=== PATIENT | female | born 1970 | race Hispanic/Latino ===

== ENCOUNTER 2017-12-15 18:27 | Emergency (ER) | payer OTHER, SELFPAY ==
[2017-12-15] MEDS ORDERED: ONDANSETRON 4 MG (ODT) TAB ONE (19:43)
[2017-12-15] MEDS ORDERED: MECLIZINE HCL 12.5 MG TAB ONE (19:43)
[2017-12-15 20:01] LABS: Urine Blood TRACE (NEG); Urine Glucose NEGATIVE (NEG); Urine Protein NEGATIVE (NEG); Urine Specific Gravity 1.025 (1.005-1.030)
[2017-12-15 20:11] LABS: Absolute Lymphocytes (CBC) 3.2 K/uL (0.7-4.9); Absolute Monocytes 0.9 K/uL (0.1-1.3); Absolute Neutrophil 3.8 K/uL (1.8-8.0); Eosinophils % 2.5 % (0-4.4); Hematocrit 37.9 % (36.0-45.0); Lymphocytes % 39.5 % (15.3-44.8); MCH 29.9 pg (27.0-35.0); MCV 86.7 fL (80-100); MPV 10.3 fL (7.6-11.3); Monocytes % 10.8 % (3.3-12.3); RBC Red Blood Cell Count 4.37 M/uL (3.86-4.86)
[2017-12-15 20:19] LABS: Potassium 3.9 mEq/L (3.6-5.0)
[2017-12-15 20:23] LABS: Albumin 3.3 g/dL (3.2-5.5); Bilirubin Total 0.3 mg/dL (0.3-1.2); Protein, Total 6.6 g/dL (6.0-8.3)
--- NOTE | 2017-12-15 20:32 | RAD REPORT ---
EXAM DESCRIPTION: CT - Head Brain Wo Cont - 12/15/2017 8:23 pm CLINICAL HISTORY: Headache COMPARISON: None. TECHNIQUE: All CT scans are performed using dose optimization technique as appropriate and may inclu de automated exposure control or mA/KV adjustment according to patient size. FINDINGS: No intracranial hemorrhage, hydrocephalus or extra-axial fluid collection.No areas of brai n edema or evidence of midline shift. The paranasal sinuses and mastoids are clear. The calvarium is intact. IMPRESSION: No acute intracranial abnormality.
--- NOTE | 2017-12-15 21:17 | EDPHYS ---
Physician Documentation [facility] Name: Priya Hood Age: 47 yrs Sex: Female : 1970 Arrival Date: 12/15/2017 Time: 18:28 Bed 28 Private MD: ED Physician Devin Schuster HPI: 12/16 02:29 This 47 yrs old Female presents to ER via Ambulatory with complaints of tw4 Dizziness, Headache. 02:29 The patient presents with dizziness. Onset: The symptoms/episode began/occurred today. tw4 Context: occurred at home. Modifying factors: The symptoms are alleviated by nothing, the symptoms are aggravated by nothing. Associated signs and symptoms: The patient has no apparent associated signs or symptoms. Severity of symptoms: At their worst the symptoms were moderate in the emergency department the symptoms are unchanged. Patient's baseline: Neuro: alert and fully oriented, Motor: no deficits, Ambulation: walks without assistance. The patient has not experienced similar symptoms in the past. 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 - Social history:: Smoking status: Patient/guardian denies using tobacco. ROS: 12/16 02:29 Constitutional: Negative for fever, chills, and weight loss, Cardiovascular: Negative tw4 for chest pain, palpitations, and edema, Respiratory: Negative for shortness of breath, cough, wheezing, and pleuritic chest pain, Abdomen/GI: Negative for abdominal pain, nausea, vomiting, diarrhea, and constipation, MS/Extremity: Negative for injury and deformity, Skin: Negative for injury, rash, and discoloration. Neuro: Positive for dizziness, Negative for altered mental status, gait disturbance, headache, hearing loss, loss of consciousness, numbness, seizure activity. Exam: 02:29 Constitutional: This is a well developed, well nourished patient who is awake, alert, tw4 and in no acute distress. Head/Face: Normocephalic, atraumatic. Chest/axilla: Normal chest wall appearance and motion. Nontender with no deformity. No lesions are appreciated. Cardiovascular: Regular rate and rhythm with a normal S1 and S2. No gallops, murmurs, or rubs. Normal PMI, no JVD. No pulse deficits. Respiratory: Lungs have equal breath sounds bilaterally, clear to auscultation and percussion. No rales, rhonchi or wheezes noted. No increased work of breathing, no retractions or nasal flaring. Abdomen/GI: Soft, non-tender, with normal bowel sounds. No distension or tympany. No guarding or rebound. No evidence of tenderness throughout. MS/ Extremity: Pulses equal, no cyanosis. Neurovascular intact. Full, normal range of motion. 02:29 Neuro: Orientation: is normal, Mentation: is normal, Memory: is normal, Cranial nerves: grossly normal, Motor: is normal, Sensation: is normal. Vital Signs: 12/15 18:32 BP 138 / 76; Pulse 74; Resp 19; Temp 98.1(TE); Pulse Ox 100% on R/A; Weight 74.84 kg; la1 Height 5 ft. 1 in. (154.94 cm); 19:17 BP 131 / 80; Pulse 62; Resp 18; Pulse Ox 100% on R/A; Pain 0/10; ak1 18:32 Body Mass Index 31.18 (74.84 kg, 154.94 cm) la1 MDM: 19:11 Patient medically screened. 12/16 02:29 Differential diagnosis: cardiac arrhythmia, generalized weakness, hypovolemia, tw4 idiopathic dizziness, near-syncope, vertigo. Data reviewed: vital signs, nurses notes. Data interpreted: hhas: rhythm is normal sinus rhythm, Pulse oximetry: Interpretation: normal. Counseling: I had a detailed discussion with the patient and/or guardian regarding: the historical points, exam findings, and any diagnostic results supporting the discharge/admit diagnosis, lab results, radiology results. Special discussion: I discussed with the patient/guardian in detail that at this point there is no indication for admission to the hospital. It is understood, however, that if the symptoms persist or worsen the patient needs to return immediately for re-evaluation. 12/15 19:19 Order name: CBC with Diff; Complete Time: 21:14 tw4 12/15 19:19 Order name: CMP; Complete Time: 21:14 tw4 12/15 19:19 Order name: CT Head Brain wo Cont; Complete Time: 21:14 tw4 12/15 19:54 Order name: Urine Dipstick--Ancillary (enter results); Complete Time: 21:14 em1 12/15 19:54 Order name: Urine --Ancillary (enter results); Complete Time: 21:14 em1 Administered Medications: 12/15 19:45 Drug: Meclizine 25 mg Route: PO; ak1 20:54 Follow up: Response: No adverse reaction ak1 19:46 Drug: Zofran 4 mg Route: PO; ak1 20:54 Follow up: Response: No adverse reaction ak1 20:54 Drug: NS 0.9% 1000 ml Route: IV; Rate: 1 bolus; Site: right antecubital; ak1 21:26 Follow up: IV Status: Completed infusion ak1 Disposition: 12/15/17 21:17 Discharged to Home. Impression: VERTIGO. - Condition is Stable. - Discharge Instructions: Benign Positional Vertigo. - Prescriptions for Antivert 25 mg Oral Tablet - take 1 tablet by ORAL route every 8 hours As needed; 20 tablet. Zofran 4 mg Oral Tablet - take 1 tablet by ORAL route every 12 hours As needed; 20 tablet. - Medication Reconciliation Form, Thank You Letter, Antibiotic Education, Prescription Opioid Use form. - Follow up: Private Physician; When: As needed; Reason: Recheck today's complaints, Re-evaluation by your physician. - Problem is new. - Symptoms have improved. Signatures: Dispatcher [employer] EDMS Earnest Valle, RN RN la1 Kesha Nelson RN RN ak1 Devin Schuster MD MD tw4
--- NOTE | 2017-12-15 21:17 | ER ---
Nurse's Notes [facility] Name: Priya Hood Age: 47 yrs Sex: Female : 1970 Arrival Date: 12/15/2017 Time: 18:28 Bed 28 Private MD: Diagnosis: VERTIGO Presentation: 12/15 18:31 Presenting complaint: Patient states: I have been having episodes where it feels like la1 the room is spinning around me since with headache. Transition of care: patient was not received from another setting of care. Onset of symptoms was December 15, 2017. Initial Sepsis Screen: Does the patient meet any 2 criteria? No. Patient's initial sepsis screen is negative. Does the patient have a suspected source of infection? No. Patient's initial sepsis screen is negative. Care prior to arrival: None. 18:31 Method Of Arrival: Ambulatory la1 18:31 Acuity: [place] 3 la1 Triage Assessment: 19:12 General: Appears in no apparent distress. Behavior is calm, cooperative. Pain: ak1 Complains of pain in head. 19:16 Pain: Pain currently is 0 out of 10 on a pain scale. Pain began 2-3 days ago. Also ak1 complains of nausea. 19:17 Headache History: Other pt denies headache at this time. 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 - Social history:: Smoking status: Patient/guardian denies using tobacco. Screenin:15 Abuse screen: Denies threats or abuse. Denies injuries from another. Nutritional ak1 screening: No deficits noted. Tuberculosis screening: No symptoms or risk factors identified. Fall Risk None identified. Assessment: 19:15 General: Appears in no apparent distress. Pain: Denies pain. Neuro: Level of ak1 Consciousness is awake, alert, obeys commands, Oriented to person, place, time, situation, Coffin Maker are equal bilaterally Moves all extremities. Gait is steady, Speech is normal, Facial symmetry appears normal. Cardiovascular: No deficits noted. Respiratory: No deficits noted. GI: Reports nausea. : No signs and/or symptoms were reported regarding the genitourinary system. EENT: No signs and/or symptoms were reported regarding the EENT system. Derm: No signs and/or symptoms reported regarding the dermatologic system. Musculoskeletal: No signs and/or symptoms reported regarding the musculoskeletal system. Vital Signs: 18:32 BP 138 / 76; Pulse 74; Resp 19; Temp 98.1(TE); Pulse Ox 100% on R/A; Weight 74.84 kg; la1 Height 5 ft. 1 in. (154.94 cm); 19:17 BP 131 / 80; Pulse 62; Resp 18; Pulse Ox 100% on R/A; Pain 0/10; ak1 18:32 Body Mass Index 31.18 (74.84 kg, 154.94 cm) la1 ED Course: 18:28 Patient arrived in ED. as 18:32 Triage completed. la1 18:32 Arm band placed on left wrist. la1 19:11 Devin Schuster MD is Attending Physician. tw4 19:11 Kesha Nelson, RN is Primary Nurse. ak1 19:16 Patient has correct armband on for positive identification. Bed in low position. Call ak1 light in reach. Side rails up X 1. Adult w/ patient. Pulse ox on. NIBP on. 19:31 Radiology exam delayed due to test not completed at this time. cw1 20:00 Initial lab(s) drawn, by me, sent to lab. by venipuncture 23G to left ac. dh3 20:06 Inserted saline lock: 20 gauge in left antecubital area, using aseptic technique. dh3 20:23 CT Head Brain wo Cont In Process Unspecified. EDMS 20:23 CT completed. Patient tolerated procedure well. Patient moved back from CT. bq 21:25 No provider procedures requiring assistance completed. ak1 21:34 IV discontinued, intact, bleeding controlled, No redness/swelling at site. Pressure ak1 dressing applied. Administered Medications: 19:45 Drug: Meclizine 25 mg Route: PO; ak1 20:54 Follow up: Response: No adverse reaction ak1 19:46 Drug: Zofran 4 mg Route: PO; ak1 20:54 Follow up: Response: No adverse reaction ak1 20:54 Drug: NS 0.9% 1000 ml Route: IV; Rate: 1 bolus; Site: right antecubital; ak1 21:26 Follow up: IV Status: Completed infusion ak1 Outcome: 21:17 Discharge ordered by . tw4 21:25 Discharged to home ambulatory, with family. ak1 21:25 Condition: good 21:34 Discharge instructions given to patient, Instructed on discharge instructions, follow ak1 up and referral plans. no drinking with medication, no driving heavy equipment, medication usage, Demonstrated understanding of instructions, follow-up care, medications, Prescriptions given X 2. 21:35 Patient left the ED. ak1 Signatures: Dispatcher [employer] EDMS Jenise Murray Amelia as Woodley, Crystal cw1 Earnest Valle, RN RN la1 Kesha Nelson RN RN ak1 Petty Ventura 3 Devin Schuster MD MD tw4
== END 2017-12-15 21:35 | disposition home or self-care (01) ==
LOC: ER 18:27
DX: H81.10 Benign paroxysmal vertigo, unspecified ear (principal)
CPT/HCPCS: 36415; 70450; 80053; 81003; 81025; 85025; 96360; 99284